=== PATIENT | female | born 1995 | race Two or more races ===

== ENCOUNTER 2018-10-23 10:13 | Emergency (ER) | payer OTHER, MEDICAID ==
[~2018-10-23] VITALS: Ht 160 cm; Wt 49.0 kg
[~2018-10-23 10:13] MED LIST: DOCO200C3; IBUP-1222 PO; PREN1TAB56 PO
[2018-10-23] MEDS ORDERED: LIDOCAINE 1%-EPI 1:100K, 20ML SQ ONE (10:30)
[2018-10-23] MEDS ORDERED: LIDOCAINE 1%-EPI 1:100K, 30ML ONE (10:35)
--- NOTE | 2018-10-23 10:55 | NUR ---
SEE TRIAGE NOTE. PA ADMINISTERED LIDOCAINE-EMT CLEANING LAC AT THIS TIME, PT IN NAD. FRIENDS AT BS.
[2018-10-23 12:15] VITALS: BP 138/94
== END 2018-10-23 12:17 | disposition home or self-care (01) ==
LOC: ED 12:00
DX: S51.812A Laceration without foreign body of left forearm, initial encounter (principal); F17.200 Nicotine dependence, unspecified, uncomplicated; W45.8XXA Other foreign body or object entering through skin, initial encounter; Y93.89 Activity, other specified; Y92.009 Unspecified place in unspecified non-institutional (private) residence as the place of occurrence of the external cause; Y99.8 Other external cause status
CPT/HCPCS: 12032; 99284; J3490; 12042

== ENCOUNTER 2020-10-15 12:56 | Inpatient (IN) | payer MEDICAID, OTHER ==
[~2020-10-15] VITALS: Ht 160 cm; Wt 59.1 kg
[2020-10-15] MEDS ORDERED: OXYTOCIN 30U/ 0.9% NaCL 500ML 500 ML ONE ×2 (13:25→17:18)
[2020-10-15 13:29] LABS: BASOPHILS % (AUTO) 1 % (0-1); EOSINOPHILS % (AUTO) 2 % (1-7); LYMPHOCYTES % (AUTO) 25 % (22-44); MEAN CORPUSCULAR HEMOGLOBIN 23.7 pg (27.0-34.8); MEAN CORPUSCULAR HGB CONC 32.8 g/dL (32.4-35.8); MONOCYTES % (AUTO) 8 % (2-9); NEUTROPHILS % (AUTO) 66 % (42-75); PLATELET COUNT 319 x10^3/uL (130-400); RED BLOOD COUNT 4.77 x10^6/uL (3.82-5.3); RED CELL DISTRIBUTION WIDTH 16.1 % (9.6-15.2)
[2020-10-15 13:30] LABS: MD NO
[2020-10-15] MEDS ORDERED: ONDANSETRON 2MG/ML, 2ML IVPush PRN (13:30)
[2020-10-15] MEDS ORDERED: FENTANYL PF 100 MCG/2ML IVPush PRN (13:30)
[2020-10-15] MEDS ORDERED: D5%-LACTATED RINGERS 1,000 ML IV SCH (13:30)
[2020-10-15] MEDS ORDERED: TERBUTALINE 1 MG/ML, 1ML IVPush PRN (13:30)
[2020-10-15] MEDS ORDERED: LACTATED RINGERS 1,000 ML IV SCH (13:30)
[2020-10-15] MEDS ORDERED: PENICILLIN GK 5,000,000 UNITS in DEXTROSE 5% 100 ML IVPB ONE (13:30)
[2020-10-15] MEDS ORDERED: TERBUTALINE 1 MG/ML, 1ML SQ PRN (13:30)
[2020-10-15] MEDS ORDERED: OXYTOCIN 30U/ 0.9% NaCL 500ML 500 ML IV ONE (13:30)
[2020-10-15] MEDS ORDERED: FENTANYL PF 100 MCG/2ML IV PRN (13:30)
[2020-10-15 13:40] VITALS: BP 147/97
[2020-10-15 14:40] LABS: ALANINE AMINOTRANSFERASE 13 U/L (12-78); ANION GAP 8 mmol/L (5-15); BILIRUBIN, DIRECT 0.1 mg/dL (0.1-0.2); CALCIUM 8.8 mg/dL (8.5-10.1); CHLORIDE 107 mmol/L (98-107); CREATININE 0.56 mg/dL (0.55-1.02)
[2020-10-15 14:42] LABS: ALKALINE PHOSPHATASE 179 U/L (45-117); BILIRUBIN,TOTAL 0.4 mg/dL (0.2-1.0); TOTAL PROTEIN 7.2 g/dL (6.4-8.2)
[2020-10-15] MEDS ORDERED: NEWBORN KIT ONE (14:56)
[2020-10-15 16:17] VITALS: BP 140/86
[2020-10-15] MEDS ORDERED: DOCUSATE 100 MG CAPSULE PO PRN (16:30)
[2020-10-15] MEDS ORDERED: CARBOPROST TROMETHAMINE 250 MCG/ML, 1ML IM PRN (16:30)
[2020-10-15] MEDS ORDERED: DIPH,PERTUSS(ACELL),TET VAC/PF NC IM-VACC PRN (16:30)
[2020-10-15] MEDS ORDERED: ACETAMINOPHEN 325 MG TABLET PO PRN ×2 (16:30)
[2020-10-15] MEDS ORDERED: RHOGAM FROM BLOOD BANK 1 NOTE EA IM/IV ONE (16:30)
[2020-10-15] MEDS ORDERED: METHYLERGONOVINE 0.2 MG/ML IM PRN (16:30)
[2020-10-15] MEDS ORDERED: MISOPROSTOL 200 MCG TABLET PR PRN (16:30)
[2020-10-15] MEDS ORDERED: SIMETHICONE 80 MG CHEW TAB PO PRN (16:30)
[2020-10-15] MEDS: OXYTOCIN 30U/ 0.9% NaCL 500ML 500 ML IV SCH (17:25)
[2020-10-15] MEDS ORDERED: PENICILLIN GK 2,500,000 UNITS in DEXTROSE 5% 100 ML IV SCH (17:30)
[2020-10-15] MEDS ORDERED: IBUPROFEN 600 MG TABLET ONE (18:20)
[2020-10-15 19:00] VITALS: BP 114/78
[2020-10-15] MEDS: OXYcodone/APAP 5/325MG TABLET PO PRN (22:22)
[2020-10-16 00:25] VITALS: BP 113/73
[2020-10-16 01:01] LABS: BASOPHILS % (AUTO) 0 % (0-1); EOSINOPHILS % (AUTO) 1 % (1-7); LYMPHOCYTES % (AUTO) 18 % (22-44); MEAN CORPUSCULAR HEMOGLOBIN 23.5 pg (27.0-34.8); MEAN CORPUSCULAR HGB CONC 32.5 g/dL (32.4-35.8); MONOCYTES % (AUTO) 6 % (2-9); NEUTROPHILS % (AUTO) 75 % (42-75); PLATELET COUNT 237 x10^3/uL (130-400); RED BLOOD COUNT 4.24 x10^6/uL (3.82-5.3); RED CELL DISTRIBUTION WIDTH 16.1 % (9.6-15.2)
[2020-10-16 01:04] LABS: MD NO
[2020-10-16] MEDS: OXYTOCIN 30U/ 0.9% NaCL 500ML 500 ML IV SCH ×3 (02:30→22:30)
[2020-10-16] MEDS: IBUPROFEN 600 MG TABLET PO PRN ×3 (02:52→15:57)
[2020-10-16 03:07] VITALS: BP 127/83
[2020-10-16 08:04] VITALS: BP 121/76
[2020-10-16] MEDS: OXYcodone/APAP 5/325MG TABLET PO PRN ×2 (08:19→15:58)
[2020-10-16] MEDS ORDERED: PRENATAL VIT/IRON/FA 1 EACH TABLET PO SCH (09:00)
[2020-10-16 13:00] VITALS: BP 147/82
[2020-10-16 19:10] VITALS: BP 116/79
[2020-10-17] MEDS: OXYcodone/APAP 5/325MG TABLET PO PRN (05:17)
[2020-10-17] MEDS: IBUPROFEN 600 MG TABLET PO PRN (05:17)
[2020-10-17 08:00] VITALS: BP 111/76
[2020-10-17] MEDS ORDERED: IBUP-1222 PO (09:10)
== END 2020-10-17 12:50 | disposition home or self-care (01) | DRG 806 ==
LOC: LDOP 12:56 → LDIP 13:19 → 2NW 19:06
PROVIDERS: ADMIT Obstetrics & Gynecology Maternal & Fetal Medicine; ATTEND Obstetrics & Gynecology Maternal & Fetal Medicine
PROC: 10E0XZZ Delivery of Products of Conception, External Approach (ICD-10-PCS; principal; 2020-10-15)
DX: O13.4 Gestational [pregnancy-induced] hypertension without significant proteinuria, complicating childbirth (principal); D62 Acute posthemorrhagic anemia; Z37.0 Single live birth; Z3A.38 38 weeks gestation of pregnancy; O99.824 Streptococcus B carrier state complicating childbirth; O90.81 Anemia of the puerperium
CPT/HCPCS: 36415; 80053; 82248; 84550; 85025; 86592; 86850; 86900; G0378; J2540; J2590; J7120